=== PATIENT | male | born 1955 | race Caucasian/White ===

== ENCOUNTER 2016-10-17 08:11 | Day surgery (SDC) | payer OTHER ==
[2016-10-17] MEDS ORDERED: LACTATED RINGERS 1,000 ML ONE (08:27)
[2016-10-17] MEDS ORDERED: IV START KIT ONE (08:28)
[2016-10-17] MEDS ORDERED: PROPOFOL 40 ML IV ONE (09:29)
[2016-10-17] MEDS ORDERED: LACTATED RINGERS 1,000 ML IV SCH (10:45)
== END 2016-10-17 11:59 | disposition home or self-care (01) ==
LOC: SDC 08:11
PROVIDERS: ATTEND Surgery
PROC: 0DJD8ZZ Inspection of Lower Intestinal Tract, Via Natural or Artificial Opening Endoscopic (ICD-10-PCS; principal; 2016-10-17)
DX: Z12.11 Encounter for screening for malignant neoplasm of colon (principal); K64.4 Residual hemorrhoidal skin tags; Z86.010 Personal history of colon polyps; E66.9 Obesity, unspecified; Z90.49 Acquired absence of other specified parts of digestive tract; Z68.38 Body mass index [BMI] 38.0-38.9, adult
CPT/HCPCS: 45378; J7120